=== PATIENT | female | born 1995 | race Caucasian/White ===

== ENCOUNTER 2020-04-23 10:45 | Emergency (ER) | payer OTHER ==
[~2020-04-23] VITALS: Ht 167.6 cm; Wt 74.8 kg
--- NOTE | 2020-04-23 10:48 | NUR ---
PT AMBULATORY TO ER BED 02 C/O BLADDER PAIN, SPASMS. DYSURIA SINCE THIS MORNING. PT ALSO ENDORSES WAKING UP W/ INCONTINENCE. PT [employer]. AWATING MD MARRERO.
--- NOTE | 2020-04-23 11:06 | NUR ---
DR [facility] AT BEDSIDE FOR EVAL.
[2020-04-23 11:19] LABS: APPEARANCE,URINE Clear (CLEAR); BILIRUBIN,URINE Negative (NEGATIVE); BLOOD, URINE Negative Ery/uL (NEGATIVE); COLOR,URINE Yellow (YELLOW); KETONES,URINE Negative (NEGATIVE); LEUKOCYTE ESTERASE ,URINE Negative (NEGATIVE); NITRITE, URINE Negative (NEGATIVE); PROTEIN,URINE Negative (NEGATIVE); UGLUCOSE Negative (NEGATIVE); UROBILINOGEN,URINE 0.2 EU/dL (0.2)
[2020-04-23 12:08] VITALS: BP 108/75
--- NOTE | 2020-04-23 12:08 | NUR ---
Patient discharged to home in stable condition. Written and verbal after care instructions given. Patient verbalizes understanding of instruction.
== END 2020-04-23 12:09 | disposition home or self-care (01) ==
LOC: ER 10:51
DX: R30.0 Dysuria (principal); R10.30 Lower abdominal pain, unspecified; R32 Unspecified urinary incontinence; F17.200 Nicotine dependence, unspecified, uncomplicated; Z60.2 Problems related to living alone
CPT/HCPCS: 81000-TC; 84703-TC